=== PATIENT | female | born 1965 | race Caucasian/White ===

== ENCOUNTER 2016-11-01 05:38 | Inpatient (IN) | payer BC ==
--- NOTE | 2016-10-28 22:54 | PREOPHP ---
DATE OF ADMISSION: 11/01/2016 HISTORY: This is a 50-year-old female, 5, para 1. This patient was referred to me by Dr. Chela centeno for a large fibroid uterus with a history of severe pelvic pain and IUD in situ. The patient h as been bleeding off and on with heavy periods with clots. She has been anemic, and she has also a history of diabetes and hypertension that have been controlled and followed by Dr. Woods. She has b een having brownish vaginal discharges, and the uterus has come so high that it was very near her um bilicus. The pelvic pain and back pain have been progressively getting worse, and she is not going to have any more children. She would like the uterus to be removed. PAST HISTORY: , diabetes, hypertension and right arm cyst excision. ALLERGIES: SHE IS ALLERGIC TO PENICILLIN. MEDICATIONS: She is on: 1. Benazepril. 2. Claritin. 3. Glimepiride 4 mg. 4. Insulin. 5. Januvia. 6. Lantus insulin. 7. Lipitor. 8. Metformin. 9. Omeprazole. The patient had been complaining also of urinary incontinence due to the size of the uterus and her pelvic pressure. The ultrasound was over 19 cm uterus with multiple fibroids, the largest 3 of them are 8 cm. The patient is also lately on aspirin and atorvastatin, and she was advised to take off the aspirin before 1 week from the surgery. FAMILY HISTORY: Diabetes. REVIEW OF SYSTEMS: Contributory only on her pain and bladder pressure. PHYSICAL EXAMINATION: GENERAL APPEARANCE: Good. VITAL SIGNS: Stable. Blood pressure 150/90, pulse is 80. She is afebrile. She weighs 191. She i s 5 feet 4 inches. HEAD AND NECK: Normal. BREASTS: With severe fibrocystic breast disease. No masses. HEART: Normal sinus rhythm. BACK: Normal. ABDOMEN: Soft. Uterus 4 fingerbreadths from the umbilicus. GENITALIA: Normal. Cervix healthy. Uterus large. The adnexa I am not able to evaluate. RECTAL: Normal. EXTREMITIES: Normal. DIAGNOSES: 1. Controlled diabetes type 2. 2. Hypertension. 3. Giant fibroids. 4. Intrauterine device in situ. PLAN: She is undergoing a ANKUR ____ where will try to keep her ovaries due to her age. She has been advised of the possible risks and possible complications of the procedure with her alternatives and options. Written information was provided. She had no more questions and agreed to go ahead with the procedure with full understanding and no more questions. Dictated By: YELENA DAVIES/WILLOW Conf#: [id number] DID#: [id number]
--- NOTE | 2016-10-30 15:45 | PREOPHP ---
DATE OF ADMISSION: 11/01/2016 SCHEDULED DATE OF ADMISSION: 11/01/[address] Yelena Clemente. DATE OF VISIT: 10/29/[address] Clemente: Thank you very much for allowing me to participate in the care of Ms. Chacon. She is a 50-year-old r ight-handed young lady who is being brought in electively by yourself for a ANKUR with BSO for dysfunctional uterine bleeding. She has failed all conservative attempts at treatment. PAST MEDICAL HISTORY: 1. Insulin resistance syndrome. 2. Obesity. 3. Diabetes mellitus type 2. 4. Nonalcoholic fatty liver disease. 5. Hypertension. 6. Hyperlipidemia. 7. Uterine fibroids. 8. Gastroesophageal reflux disease. 9. Allergic rhinitis. 10. Status post x1. 11. Status post benign right breast biopsy. 12. Status post T and A. 13. Status post tubal ligation. ALLERGIES: SHE IS ALLERGIC TO PENICILLIN. MEDICATIONS: 1. Atorvastatin 5 mg once a day. 2. Metformin 1 gram b.i.d. 3. Glimepiride 4 mg b.i.d. 4. Januvia 100 mg once a day. 5. Lantus insulin 60 units at bedtime. 6. Loratadine 10 mg a day. 7. Omeprazole 40 mg q.a.m. 8. An IUD named Mirena, which is in place for the moment. 9. Benazepril 20 mg once a day. HABITS: She is a nonsmoker, no alcohol, rare caffeine, no usage of recreational drugs. SOCIAL HISTORY: She was born in [place] and raised there to the age 5, then [facility]. Mackenzie dye has a high school education without experience. She is for 20 years, lives with her spouse, and she is a homemaker. FAMILY HISTORY: Negative for coronary artery disease. Positive for diabetes. Negative for hyperte nsion, negative for stroke. Negative for asthma, negative for glaucoma, negative for migraine, nega tive for colon cancer, negative for breast cancer, negative for osteoporosis. REVIEW OF SYSTEMS: HEAD AND EYES: Fully negative. ENT: Negative. CARDIAC: Negative. RESPIRATORY: Negative. GASTROINTESTINAL: Negative. HEMATOLOGIC: Negative. UROLOGIC: Negative. GYNECOLOGIC: G6, P1, AB 5 with active spotting. PSYCHIATRIC: Negative. MUSCULOSKELETAL: Negative. ENDOCRINE: Negative. She is not having hypoglycemic reactions. NEUROLOGIC: Negative. GENERAL: No weight change, no fever, chills, or sweats. No changing skin lesions. PHYSICAL EXAMINATION: VITAL SIGNS: At the time of physical exam, she has a height of 5 feet 3 inches, weight 193.7, pulse 76, temperature is 98.6, blood pressure is 130/70. GENERAL: She is a pleasant woman in no jennie distress. HEENT: NC/AT; PERRL, EOMI, anicteric. Fundi were without note; tympanic membranes were without not e; oropharynx demonstrates no lesions. NECK: Supple. There is a midline trachea. There is no thyromegaly; pulses are 2+ without bruits. RESPIRATORY: Clear to auscultation and percussion. CARDIAC: Demonstrates no JVD, a regular rate and rhythm without rubs, murmurs, or gallops. ABDOMEN: Soft, nontender, active bowel sounds, no hepatosplenomegaly, no CVA tenderness, no hernias and no bruits. EXTREMITIES: Demonstrate no clubbing, cyanosis, or edema. Please note that the top of the fundus i s at the umbilicus NEUROLOGIC: Nonfocal. LABS: Chest x-ray demonstrates normal bones and soft tissue, with abundant soft tissues, normal car diac size and silhouette, normal lungs with no evidence of TB. EKG is sinus rhythm at 82 with intervals of 0.14, 0.08, 08, 3 and axis of 0 degrees, normal morpholo gy. Sodium 138, potassium 4.6, chloride 102, bicarbonate 25, BUN 11, creatinine 0.59, random blood sugar 89. Liver chemistries are without note. White count 10.9, hematocrit 42.1, hemoglobin 14.2, plate let count 297. Pro time 11.3 with an INR of 0.95, PTT is 26 seconds. ASSESSMENT AND PLAN: Preoperative medical consultation prior to elective ANKUR with BSO. At this denisse e, I find Ms. Chacon to be an acceptable surgical candidate and concur with your plans to proceed wi surgery. She is at average surgical risk as compared to her age-matched peers. She should do we ll using standard and routine anesthesia precautions. Even though she is diabetic, using the modifi ed Reyez risk criteria, she is at average cardiac risk. Dictated By: MADISYN BECK MD, JR/WILLOW Conf#: [id number] [facility]#: [id number] CC: YELENA CLEMENTE MD;*EndCC*
[2016-10-31 09:50] VITALS: BMI 32.9
[~2016-11-01] VITALS: Ht 160 cm; Wt 86.0 kg
[2016-11-01] VITALS (20 sets, daily range): BP systolic 98–139; BP diastolic 52–81; PULSE 76–100; RESP 18–20; Ht 160 cm; Wt 86.0 kg
[~2016-11-01 05:38] MED LIST: NPH,100V10 SQ; QUIN10TA PO
[2016-11-01] MEDS ORDERED: DEXTROSE 5%-LR 1,000 ML IV SCH (06:45)
[2016-11-01] MEDS ORDERED: CLINDAMYCIN 900 MG/D5W (PMX) 50 ML IVPB ONE (06:47)
[2016-11-01] MEDS ORDERED: LIDOCAINE 2% (SDV) 5 ML INJ ONE (07:00)
[2016-11-01] MEDS ORDERED: BENA20TA48 PO (07:05)
[2016-11-01] MEDS ORDERED: LORA10TA3 PO (07:05)
[2016-11-01] MEDS ORDERED: ATOR10TA65 PO (07:05)
[2016-11-01] MEDS ORDERED: ASPI81TA3 PO (07:05)
[2016-11-01] MEDS ORDERED: GLIM4TAB PO (07:05)
[2016-11-01] MEDS ORDERED: OMEP20CA16 PO (07:05)
[2016-11-01] MEDS ORDERED: SITA100T8 PO (07:05)
[2016-11-01] MEDS ORDERED: LANT3I SC (07:05)
[2016-11-01] MEDS ORDERED: METF1000 PO (07:05)
[2016-11-01] MEDS ORDERED: FENTAnyl 50 MCG/ML VIAL ONE (07:08)
[2016-11-01] MEDS ORDERED: morphine SULFATE/PF (10 MG/10 ML) INJ ONE (07:08)
[2016-11-01] MEDS ORDERED: PROPOFOL 100 ML ONE (07:17)
[2016-11-01] MEDS ORDERED: MIDAZOLAM 1 MG/ML 2 ML INJ ONE (07:18)
--- NOTE | 2016-11-01 07:56 | HPN ---
Date/Time of Note Date/Time of Note DATE: 11/01/16 TIME: 07:56 Interval H&P Admission Note Pt. seen H&P reviewed: No system changes YELENA CLEMENTE MD Nov 01, 2016 07:56
[2016-11-01] MEDS ORDERED: LACTATED RINGER'S 1,000 ML IV SCH (07:59)
[2016-11-01] MEDS ORDERED: ONDANSETRON 4 MG INJ IV PRN ×2 (08:00→09:00)
[2016-11-01] MEDS ORDERED: KETOROLAC 30 MG INJ IV PRN ×3 (08:00→09:00)
[2016-11-01] MEDS ORDERED: hydrALAzine 20 MG INJ IV PRN (08:00)
[2016-11-01] MEDS ORDERED: LABETALOL HCL 20MG INJ IV PRN (08:00)
[2016-11-01] MEDS ORDERED: EPHEDrine SULFATE 50 MG/5 ML SYG IV PRN (08:00)
[2016-11-01] MEDS ORDERED: GLIMEPIRIDE 4 MG TAB PO SCH (08:00)
[2016-11-01] MEDS ORDERED: BISACODYL (EC) 5 MG TAB PO PRN ×2 (08:00)
[2016-11-01] MEDS ORDERED: HYDROmorphONE (0.2 MG/ML) 10ML SYG IV PRN ×3 (08:00)
[2016-11-01] MEDS ORDERED: DIPHENHYDRAMINE 50 MG INJ IV PRN ×2 (08:00→09:00)
[2016-11-01] MEDS ORDERED: ZOLPIDEM 5 MG TAB PO PRN ×3 (08:00→09:00)
[2016-11-01] MEDS ORDERED: INSULIN ASPART [NOVOLOG] 3 ML PEN SC ONE (08:00)
[2016-11-01] MEDS ORDERED: HYDROCODONE/APAP (5/325) TAB PO PRN ×3 (08:00→09:00)
[2016-11-01] MEDS ORDERED: MEPERIDINE 25 MG INJ IV PRN (08:00)
[2016-11-01] MEDS ORDERED: HYDROmorphONE 1 MG/ML SYG IV PRN ×4 (08:00→09:00)
[2016-11-01] MEDS ORDERED: DIPHENHYDRAMINE 50 MG CAP PO PRN ×2 (08:00)
[2016-11-01] MEDS ORDERED: PHENYLephrine (100 MCG/ML) 5ML SYG ONE (08:12)
[2016-11-01] MEDS ORDERED: ROCURONIUM 50 MG INJ ONE (08:17)
[2016-11-01] MEDS ORDERED: EPHEDrine SULFATE 50 MG/5 ML SYG ONE (08:18)
[2016-11-01] MEDS ORDERED: DEXAMETHASONE 4 MG/ML 1 ML INJ ONE (08:18)
[2016-11-01] MEDS ORDERED: VASOPRESSIN 20 UNITS INJ ONE ×2 (08:40→08:42)
[2016-11-01] MEDS ORDERED: SODIUM CL BACTERIOSTATIC 30 ML INJ ONE (08:41)
[2016-11-01] MEDS ORDERED: NALOXONE (0.4 MG/ML) INJ IV PRN (09:00)
[2016-11-01] MEDS ORDERED: KETOROLAC 15 MG INJ IV PRN (09:00)
[2016-11-01] MEDS ORDERED: NALBUPHINE HCL (10 MG/1 ML) INJ IV PRN (09:00)
[2016-11-01] MEDS: LORATADINE 10 MG TAB PO SCH (09:00)
[2016-11-01] MEDS: BENAZEPRIL 20 MG TAB PO SCH (09:00)
[2016-11-01] MEDS ORDERED: ONDANSETRON 4 MG INJ ONE (10:21)
--- NOTE | 2016-11-01 10:39 | OPPN ---
Date/Time of Note Date/Time of Note DATE: 11/01/16 TIME: 10:31 Operative/Procedure Note GIANT MULTIPLE FIBROID UTERUS INTRACTABLE MENOMETRORRHAGIA AND PAIN Post-Operative Diagnosis SAME PLUS LARGE LEFT MULTIPLE OVARIAN CYSTS RIGHT OVARIAN CYST PELVIC ADHESIONS Procedure TOTAL ABDOMINAL HYSTERECTOMY LSO RIGHT SALPINGECTOMY Surgeon: YELENA CLEMENTE MD [employer] Estate Legal Secretary: MARGI LEE MD Anesthesiologist: JURGEN BUSTAMANTE MD Findings GIANT FIBROID UTERUS 22 WEEKS SIZE MULTIPLE ADHESIONS BILATERAL LARGE OVARIAN CYSTS Estimated blood loss: 150 - 200 ml's Specimens UTERUS TUBES AND LEFT OVARY AND OVARIAN CYSTS Complications: None Anesthesia type: general YELENA CLEMENTE MD Nov 01, 2016 10:39
[2016-11-01] MEDS ORDERED: METOCLOPRAMIDE 10 MG TAB PO SCH (12:00)
[2016-11-01] MEDS: LACTATED RINGER'S 1,000 ML IV SCH ×3 (12:20→23:59)
--- NOTE | 2016-11-01 12:24 | CONS ---
Date/Time of Note Date/Time of Note DATE: 11/01/16 TIME: 12:20 Assessment/Plan Assessment/Plan Problems: (1) Diabetes mellitus type 2 in obese Status: Chronic Comment: At this time since she is nauseated and not taking p.o. I am going to put a hold on the glimepiride. Should continue her other medications and be on sliding scale insulin for the moment. (2) Essential hypertension Status: Chronic Comment: She will remain on her routine medications (3) Hyperlipidemia associated with type 2 diabetes mellitus Status: Chronic Comment: Remain on her routine medication (4) Obesity (BMI 30.0-34.9) Status: Chronic Comment: Once taking p.o. she will be on a calorie restricted diet (5) Iron deficiency anemia due to chronic blood loss Status: Chronic Comment: We will take the opportunity to replace her IV (6) Status post total abdominal hysterectomy Status: Acute Comment: Postop and stable (7) Status post unilateral salpingo-oophorectomy Status: Acute Comment: Left-sided postop and stable Consultation Date/Type/Reason Admit Date/Time Nov 01, 2016 at 05:38 Initial Consult Date 11/01/2016 Type of Consultation: Internal medicine Reason for Consultation Postoperative management of medical problems including diabetes mellitus type 2 hypertension hyperlipidemia Referring Provider: YELENA CLEMENTE MD 24 HR Interval Summary Constitutional: no complaints (No fever chills or sweats) Detailed Summary ENT: no complaints Respiratory: no complaints (No dyspnea short of breath) Cardiovascular: no complaints (No chest pain no palpitation) Gastrointestinal: nausea (Positive nausea immediately postop) Genitourinary: no complaints Exam/Review of Systems Vital Signs Vitals Vital Signs Date Time Temp Pulse Resp B/P Pulse Ox O2 Delivery O2 Flow Rate FiO2 11/01/16 11:29 78 18 118/62 99 Nasal Cannula 2.0 11/01/16 10:46 98.5 Exam Constitutional: alert, oriented Neck: non-tender, supple Respiratory: clear to auscultation, normal air movement Cardiovascular: nl pulses, regular rate and rhythm Gastrointestinal: bowel sounds (Bowel sounds are quiet at this moment immediately postop from abdominal surgery), soft Results Results 24 hrs Laboratory Tests Test 11/01/16 06:33 11/01/16 12:09 Bedside Glucose 103 159 Medications Medications Current Medications Lactated Ringer's (Lr) 1,000 ml @ 125 mls/hr Q8H IV ; Start 11/01/16 at 07:59 Zolpidem Tartrate (Ambien) 10 mg HS PRN PO INSOMNIA; Start 11/01/16 at 08:00 Metoclopramide HCl (Reglan) 10 mg Q6 PO ; Start 11/01/16 at 12:00 Simethicone (Mylicon) 160 mg Q6 PO ; Start 11/01/16 at 12:00 Bisacodyl (Dulcolax) 10 mg DAILY PRN PO CONSTIPATION; Start 11/01/16 at 08:00 Hydromorphone HCl (Dilaudid) 1 mg Q4H PRN IV PAIN; Start 11/01/16 at 08:00 Acetaminophen/ Hydrocodone Bitart ([place] (5/325)) 1 tab Q6H PRN PO PAIN LEVEL 4 -6; Start 11/01/16 at 08:00 Acetaminophen/ Hydrocodone Bitart ([place] (5/325)) 2 tab Q6H PRN PO PAIN LEVEL 7 -10; Start 11/01/16 at 08:00 Ketorolac Tromethamine (Toradol) 30 mg Q6H PRN IV PAIN; Start 11/01/16 at 08:00 ; Stop 11/04/16 at 07:59 Diphenhydramine HCl 50 mg 50 mg Q6H PRN PO ITCHING; Start 11/01/16 at 08:00 Clindamycin HCl/ Dextrose (Cleocin 600 Mg/ D5W (Pmx)) 50 ml @ 50 mls/hr Q6 IVPB ; Start 11/01/16 at 12:00; Stop 11/02/16 at 06:00 Enoxaparin Sodium (Lovenox) 30 mg BID SC ; Start 11/01/16 at 21:00 Benazepril HCl (Lotensin) 20 mg DAILY PO ; Start 11/01/16 at 09:00 Loratadine (Claritin) 10 mg DAILY PO ; Start 11/01/16 at 09:00 Pantoprazole (Protonix Tab) 40 mg DAILY@06 PO ; Start 11/02/16 at 06:00 Linagliptin (Tradjenta) 5 mg DAILY PO ; Start 11/02/16 at 09:00 Hydromorphone HCl (Dilaudid) 0.2 mg Q2H PRN IV PAIN LEVEL 1-5; Start 11/01/16 at 09:00 Hydromorphone HCl (Dilaudid) 0.4 mg Q2H PRN IV PAIN LEVEL 6-10; Start 11/01/16 at 09:00 Ketorolac Tromethamine (Toradol) 30 mg Q6H PRN IV PAIN LEVEL 6-10; Start at 09:00; Stop 11/04/16 at 08:59 Ketorolac Tromethamine (Toradol) 15 mg Q6H PRN IV PAIN LEVEL 6-10; Start at 09:00; Stop 11/04/16 at 08:59 Acetaminophen/ Hydrocodone Bitart ([place] (5/325)) 1 tab Q4H PRN PO PAIN LEVEL 4 -6; Start 11/01/16 at 09:00 Diphenhydramine HCl (Benadryl) 25 mg Q4H PRN IV PRURITUS; Start 11/01/16 at 09: 00 Nalbuphine HCl (Nubain) 10 mg Q4H PRN IV PRURITUS; Start 11/01/16 at 09:00 Ondansetron HCl (Zofran Inj) 4 mg Q6H PRN IV NAUSEA AND/OR VOMITING; Start at 09:00 Naloxone HCl 0.2 mg 0.2 mg Q2M PRN IV FOR RESP RATE 8 OR LESS; Start 11/01/16 at 09:00 Ferric Sodium Gluconate Complex/ Sodium Chloride (Ferrlecit/NS) 110 ml @ 100 mls/hr Q24H IVPB ; Start 11/01/16 at 12:30; Stop 11/03/16 at 13:35; Status MADISYN CRUZ MD Nov 01, 2016 12:24
--- NOTE | 2016-11-01 13:56 | OPR ---
DATE OF OPERATION: PREOPERATIVE DIAGNOSES 1. Giant multiple fibroid uterus. 2. Intractable menometrorrhagia and pain. 3. Diabetes. 4. Hypertension. POSTOPERATIVE DIAGNOSES: 1. Giant multiple fibroid uterus. 2. Intractable menometrorrhagia and pain. 3. Diabetes. 4. Hypertension. 5. Large left multiple ovarian cysts. 6. Right ovarian cyst. OPERATION PERFORMED: Total abdominal hysterectomy, left salpingo-oophorectomy, right salpingectomy. Lysis of adhesions. SURGEON: Dr. Guerrero. DIRECTOR CLINICAL OPERATIONS: ANESTHESIOLOGIST: Dr. Mclean. FINDINGS: Giant fibroid uterus 22 weeks size, multiple adhesions, bilateral large ovarian cyst. ESTIMATED BLOOD LOSS: COMPLICATIONS: None. PROCEDURE: The patient was given general anesthesia, placed in the supine position. A Peralta cathet er was placed in the bladder. A transverse incision was made suprapubically about 2 cm at the pubic bone for about 15 to 20 cm in length due to the size of the fibroid that is passing above and navel . The abdomen was opened in layers. Examination of the pelvic area revealed that the fibroid was a single fibroid with a giant uterus that was reaching above the navel. The decision was to detach t he rectus muscle from the tendon right underneath the pubic area. We did this with cautery for bett er exposure, and with 2 Kristen and with the help of a Melissa, the uterus bulged out of the incision a nd the size of the uterus was enormous, possibly about 7 pounds in size. The round ligaments and th e ovarian ligament and tube were burned with a LigaSure instrument and incised. The anterior broad ligament was incised and the bladder flap was made. There were adhesions from the bowel to the uterus and to the and ovaries, and ovaries to the bowel, all through both sides. Both ovaries were large. The right ovary had 1 large right ovarian cyst th at was apparently a follicular cyst. The left ovary was converted in 2 large cysts with no viable t issue. The lysis of adhesion was done and the uterine vessels were skeletonized and the uterine ves sels were clamped with Phani clamps, cut and tied with [id number] sutures with #1 Vicryl. The cardinal ligaments and uterosacral ligaments were clamped with straight clamps and the uterus was c ut at the level of the cervix to be able to put a self-retaining retractor. The uterus was removed and the self-retraining retractor OCS was placed in and the visualization was better. The cervical cuff was grabbed with a Kristen clamp. The cardinal ligaments and uterosacral ligaments were clamped, cut and tied with #1 Vicryl. The posterior vaginal cuff was entered and the cervix was removed. F [id number] sutures with #1 Vicryl were placed in both corners of the vagina and interrupted sutu res in the middle, and the vagina was closed. The cavity was visualized under water with no active bleeding. The left tube was excised with a Lig aSure instrument bipolar to 3 green level and the cyst was ruptured since it appears to be a benign cystic with follicular containing fluid. This ovary was left. The left ovary had 2 very large cyst s that had no viable ovarian tissue. For this reason, we removed the ovary from the infundibulopelv ic ligament and the tube with the LigaSure instrument. The cavity was again looked at under water. There were several adhesions of the bowel, again in 2 different places like the ovary and the side of the pelvis that were lysed. The cavity was cleaned out and a piece of Surgicel was left in the v aginal cuff, and the right ovary was protected with Interceed for prevention of adhesions. The steve toneum was now closed with a 2-0 Vicryl suture. The sponge counts and instrument counts and needle counts were correct. At this time, the rectus mu scle was placed back to the tendon area with interrupted sutures with #0 chromic and the fascia was closed with 0 PDS looped suture. The subcutaneous tissue was closed with 2-0 Vicryl and the skin wa s closed with 3-0 Monocryl subcuticular stitch. Dermabond was applied and Steri-Strips and a pressu re dressing. The patient tolerated the procedure well and left the OR awake and stable. Sponge cou nts and instrument counts were correct. Intravenous antibiotics were given for prophylaxis. Blood loss was minimal and the urine was clear at the end of the procedure. Dictated By: YELENA DAVIES/WILLOW Conf#: [id number] DID#: [id number]
[2016-11-01] MEDS: SOD FERRIC GLUC COMPLX 125 MG in SOD CHLORIDE 0.9% 100 ML IVPB SCH (14:02)
[2016-11-01] MEDS: CLINDAMYCIN 600 MG/D5W (PMX) 50 ML IVPB SCH ×2 (15:04→19:42)
[2016-11-01] MEDS: metFORMIN 500 MG TAB PO SCH (17:49)
[2016-11-01] MEDS: METOCLOPRAMIDE 10 MG TAB PO SCH (17:50)
[2016-11-01] MEDS: ENOXAPARIN 30 MG/0.3 ML SYG SC SCH (21:10)
[2016-11-02] MEDS: METOCLOPRAMIDE 10 MG TAB PO SCH ×4 (00:21→17:54)
[2016-11-02] MEDS: CLINDAMYCIN 600 MG/D5W (PMX) 50 ML IVPB SCH ×2 (00:21→05:38)
[2016-11-02 00:25] VITALS: BP 99/65; PULSE 82; RESP 18
[2016-11-02] MEDS: LACTATED RINGER'S 1,000 ML IV SCH ×2 (02:25→11:15)
[2016-11-02 05:33] LABS: BASOPHILS % 0.4 % (0.0-2.0); EOSINOPHILS # 0.1 10^3/ul (0.0-0.5); EOSINOPHILS % 0.8 % (0.0-7.0); HEMOGLOBIN 10.3 g/dl (12.0-16.0); LYMPHOCYTES # 2.6 10^3/ul (0.8-2.9); MEAN CORPUSCULAR HGB CONC 33.1 g/dl (32.0-37.0); MEAN CORPUSCULAR VOLUME 90.5 fl (82.0-101.0); MEAN PLATELET VOLUME 8.5 fl (7.4-10.4); MONOCYTE # 1.3 10^3/ul (0.3-0.9); MONOCYTES % 11.4 % (0.0-11.0); NEUTROPHIL # 7.3 10^3/ul (1.6-7.5); NEUTROPHILS % 64.4 % (39.0-77.0); PLATELET COUNT 228 10^3/UL (140-440); RED BLOOD COUNT 3.42 10^6/ul (4.20-5.40); RED CELL DISTRIBUTION WIDTH 14.6 % (11.5-14.5); UNCORRECTED WBC 11.4 10^3/ul (4.8-10.8); WHITE BLOOD COUNT 11.4 10^3/ul (4.8-10.8)
[2016-11-02] MEDS: PANTOPRAZOLE (EC) 40 MG TAB PO SCH (05:38)
[2016-11-02 05:41] LABS: CONDITION 1; LH ANALYZER COMMENTS 1
[2016-11-02 06:00] VITALS: BP 98/57; PULSE 78; RESP 18
[2016-11-02 06:14] LABS: POTASSIUM 4.7 mmol/L (3.5-5.1)
[2016-11-02 06:17] LABS: CREATININE 0.65 mg/dl (0.44-1.00)
[2016-11-02 08:29] VITALS: BP 90/52; RESP 18
[2016-11-02] MEDS: LORATADINE 10 MG TAB PO SCH (08:41)
[2016-11-02] MEDS: LINAGLIPTIN 5 MG TABLET PO SCH (08:42)
[2016-11-02] MEDS: metFORMIN 500 MG TAB PO SCH ×2 (08:43→17:54)
[2016-11-02] MEDS: ENOXAPARIN 30 MG/0.3 ML SYG SC SCH ×2 (08:45→20:46)
[2016-11-02] MEDS: BENAZEPRIL 20 MG TAB PO SCH (09:00)
[2016-11-02] MEDS: HYDROCODONE/APAP (5/325) TAB PO PRN ×2 (11:21→17:54)
--- NOTE | 2016-11-02 12:05 | PN ---
Date/Time of Note Date/Time of Note DATE: 11/02/16 TIME: 12:04 Assessment/Plan Lines/Catheters IV Catheter Type (from Nrsg): Peripheral IV Peralta in Place (from Nrsg): Yes Subjective 24 Hr Interval Summary afebrile., feels good . ambulating and voiding well abdomen soft, incision dry. not passing gases yet. encouraged ambulation Constitutional: BM, ambulates, flatus, improved, no complaints, urine output Feeding: advancing diet Pain Control: well controlled Detailed Summary Eyes: no complaints ENT: no complaints Respiratory: no complaints Cardiovascular: no complaints Gastrointestinal: no complaints Genitourinary: no complaints Musculoskeletal: no complaints Skin: no complaints Neurologic: no complaints Endocrine: no complaints Lymphatic: no complaints Psychological: nl mood/affect, no complaints Immunologic: no complaints Exam/Review of Systems Vital Signs Vitals Vital Signs Date Time Temp Pulse Resp B/P Pulse Ox O2 Delivery O2 Flow Rate FiO2 11/02/16 08:29 98.3 77 18 90/52 94 11/02/16 06:00 Room Air 2.0 Intake and Output 11/01/16 11/01/16 11/02/16 15:00 23:00 07:00 Intake Total 2700 ml 1010 ml 1700 ml Output Total 380 ml 800 ml 950 ml Balance 2320 ml 210 ml 750 ml Exam Constitutional: alert, oriented, well developed Psych: nl mood/affect, no complaints Head: atraumatic, normocephalic Eyes: EOMI, nl conjunctiva, nl lids, nl sclera ENMT: mucosa pink and moist, nl external ears & nose, nl lips & teeth, nl nasal mucosa & septum Neck: non-tender, supple Respiratory: clear to auscultation, normal air movement Cardiovascular: nl pulses, regular rate and rhythm Gastrointestinal: nl liver, spleen, non-tender, soft Musculoskeletal: nl extremities to inspection, nl gait and stance Extremities: normal pulses Neurological: CAM SPECIALIST II-XII intact, nl mental status, nl speech, nl strength Skin: nl turgor, rash or lesions Lymph: nl lymph nodes Results Result Diagram: 11/02/16 0435 11/02/16 0435 YELENA CLEMENTE MD Nov 02, 2016 12:05
[2016-11-02] MEDS ORDERED: BISACODYL (EC) 5 MG TAB PO ONE (12:30)
[2016-11-02] MEDS: SOD FERRIC GLUC COMPLX 125 MG in SOD CHLORIDE 0.9% 100 ML IVPB SCH (13:06)
--- NOTE | 2016-11-02 14:42 | PN ---
Date/Time of Note Date/Time of Note DATE: 11/02/16 TIME: 14:40 Assessment/Plan VTE Prophylaxis VTE Prophylaxis Intervention: LMWH Lines/Catheters IV Catheter Type (from Nrsg): Saline Lock Urinary Cath still in place: Yes Subjective 24 Hr Interval Summary Free Text/Dictation post hys, doing well, can walk to br, ok without catheter, pain control is ok not sob, no cp, no bleeding alert, lungs clear, heart rate is ok vs good fs blood sugar ok today Exam/Review of Systems Vital Signs Vitals Vital Signs Date Time Temp Pulse Resp B/P Pulse Ox O2 Delivery O2 Flow Rate FiO2 11/02/16 08:29 98.3 77 18 90/52 94 11/02/16 06:00 Room Air 2.0 Intake and Output 11/01/16 11/01/16 11/02/16 15:00 23:00 07:00 Intake Total 2700 ml 1010 ml 1700 ml Output Total 380 ml 800 ml 950 ml Balance 2320 ml 210 ml 750 ml Results Result Diagram: 11/02/16 0435 11/02/16 0435 Results 24 hrs Laboratory Tests Test 11/01/16 16:50 11/02/16 04:35 11/02/16 07:59 Bedside Glucose 186 132 Anion Gap 13 Basophils # 0.0 Basophils % 0.4 Blood Morphology Comment Blood Urea Nitrogen 11 Carbon Dioxide Level 28 Chloride Level 99 Creatinine 0.65 Eosinophils # 0.1 Eosinophils % 0.8 Hematocrit 31.0 L Hemoglobin 10.3 L Lymphocytes # 2.6 Lymphocytes % 23.0 Mean Corpuscular Hemoglobin 30.0 Mean Corpuscular Hemoglobin Concent 33.1 Mean Corpuscular Volume 90.5 Mean Platelet Volume 8.5 Monocytes # 1.3 H Monocytes % 11.4 H Neutrophils # 7.3 Neutrophils % 64.4 Nucleated Red Blood Cells # 0.0 Nucleated Red Blood Cells % 0.0 Platelet Count 228 Potassium Level 4.7 Red Blood Count 3.42 L Red Cell Distribution Width 14.6 H Sodium Level 135 White Blood Count 11.4 H Medications Medications Current Medications Zolpidem Tartrate (Ambien) 10 mg HS PRN PO INSOMNIA; Start 11/01/16 at 08:00 Metoclopramide HCl (Reglan) 10 mg Q6 PO Last administered on 11/02/16t 11:21; Admin Dose 10 MG; Start 11/01/16 at 12:00 Simethicone (Mylicon) 160 mg Q6 PO Last administered on 11/02/16 11:21; Admin Dose 160 MG; Start 11/01/16 at 12:00 Bisacodyl (Dulcolax) 10 mg DAILY PRN PO CONSTIPATION; Start 11/01/16 at 08:00 Hydromorphone HCl (Dilaudid) 1 mg Q4H PRN IV PAIN; Start 11/01/16 at 08:00 Acetaminophen/ Hydrocodone Bitart ([place] (5/325)) 1 tab Q6H PRN PO PAIN LEVEL 4 -6 Last administered on 11/02/16 11:21; Admin Dose 1 TAB; Start 11/01/16 at 08: 00 Acetaminophen/ Hydrocodone Bitart ([place] (5/325)) 2 tab Q6H PRN PO PAIN LEVEL 7 -10; Start 11/01/16 at 08:00 Ketorolac Tromethamine (Toradol) 30 mg Q6H PRN IV PAIN; Start 11/01/16 at 08:00 ; Stop 11/04/16 at 07:59 Diphenhydramine HCl (Benadryl) 50 mg Q6H PRN PO ITCHING; Start 11/01/16 at 08: 00 Enoxaparin Sodium (Lovenox) 30 mg BID SC Last administered on 11/02/16 08:45; Admin Dose 30 MG; Start 11/01/16 at 21:00 Benazepril HCl (Lotensin) 20 mg DAILY PO ; Start 11/01/16 at 09:00 Loratadine (Claritin) 10 mg DAILY PO Last administered on 11/02/16 08:41; Admin Dose 10 MG; Start 11/01/16 at 09:00 Pantoprazole (Protonix Tab) 40 mg DAILY@06 PO Last administered on 11/02/16 05 :38; Admin Dose 40 MG; Start 11/02/16 at 06:00 Linagliptin (Tradjenta) 5 mg DAILY PO Last administered on 11/02/16 08:42; Admin Dose 5 MG; Start 11/02/16 at 09:00 Hydromorphone HCl (Dilaudid) 0.2 mg Q2H PRN IV PAIN LEVEL 1-5; Start 11/01/16 at 09:00 Hydromorphone HCl (Dilaudid) 0.4 mg Q2H PRN IV PAIN LEVEL 6-10; Start 11/01/16 at 09:00 Ketorolac Tromethamine (Toradol) 30 mg Q6H PRN IV PAIN LEVEL 6-10; Start at 09:00; Stop 11/04/16 at 08:59 Ketorolac Tromethamine (Toradol) 15 mg Q6H PRN IV PAIN LEVEL 6-10; Start at 09:00; Stop 11/04/16 at 08:59 Acetaminophen/ Hydrocodone Bitart ([place] (5/325)) 1 tab Q4H PRN PO PAIN LEVEL 4 -6; Start 11/01/16 at 09:00 Diphenhydramine HCl (Benadryl) 25 mg Q4H PRN IV PRURITUS Last administered on 12:48; Admin Dose 25 MG; Start 11/01/16 at 09:00 Nalbuphine HCl (Nubain) 10 mg Q4H PRN IV PRURITUS; Start 11/01/16 at 09:00 Ondansetron HCl (Zofran Inj) 4 mg Q6H PRN IV NAUSEA AND/OR VOMITING Last administered on 11/01/16 12:20; Admin Dose 4 MG; Start 11/01/16 at 09:00 Naloxone HCl 0.2 mg 0.2 mg Q2M PRN IV FOR RESP RATE 8 OR LESS; Start 11/01/16 at 09:00 Ferric Sodium Gluconate Complex/ Sodium Chloride (Ferrlecit/NS) 110 ml @ 100 mls/hr Q24H IVPB Last administered on 11/02/16 13:06; Admin Dose 100 MLS/HR; Start 11/01/16 at 14:00; Stop 11/03/16 at 15:05 RITA GIBBONS MD Nov 02, 2016 14:42
[2016-11-03] MEDS: METOCLOPRAMIDE 10 MG TAB PO SCH ×5 (00:09→23:47)
[2016-11-03] MEDS: HYDROCODONE/APAP (5/325) TAB PO PRN ×4 (00:14→19:17)
[2016-11-03] MEDS: PANTOPRAZOLE (EC) 40 MG TAB PO SCH (05:59)
[2016-11-03 07:50] VITALS: BP 136/65; RESP 17
[2016-11-03] MEDS: metFORMIN 500 MG TAB PO SCH ×2 (07:54→17:57)
[2016-11-03] MEDS: LINAGLIPTIN 5 MG TABLET PO SCH (08:18)
[2016-11-03] MEDS: LORATADINE 10 MG TAB PO SCH (08:18)
[2016-11-03] MEDS: BENAZEPRIL 20 MG TAB PO SCH (08:18)
[2016-11-03] MEDS: ENOXAPARIN 30 MG/0.3 ML SYG SC SCH ×2 (08:21→21:08)
--- NOTE | 2016-11-03 13:15 | QN ---
Documentation Comment LABORIST following pt for Dr Guerrero today. POD #2 s/p ANKUR. Still no flatus or BM but pt is not uncomfortable. Adequate pain relief. Tolerating a regular diet. Reports a slight cough and says it is a recurrence of a URI she had prior to surgery for which she was put on antibiotics by Dr Woods. T= 98.5. MH=099/65. Incision C/D/I. No evidence of infection. Extremities no edema, NT. P: Plan d/c tomorrow. Hopefully Dr Woods or an associate will see this pt today and give meds as needed for her URI. Offered stool softeners and/or Mylicon and pt deferred for now. ABHAY WHITNEY MD Nov 03, 2016 13:15
[2016-11-03] MEDS: SOD FERRIC GLUC COMPLX 125 MG in SOD CHLORIDE 0.9% 100 ML IVPB SCH (14:04)
[2016-11-03] MEDS ORDERED: GLUCOSE GEL 15 GRAM TUBE PO PRN ×2 (18:00)
[2016-11-03] MEDS ORDERED: DEXTROSE 50% 50 ML SYRINGE IV PRN ×2 (18:00)
[2016-11-03] MEDS ORDERED: GLUCOSE GEL 15 GRAM TUBE BUCCAL PRN (18:00)
[2016-11-03] MEDS ORDERED: GLUCAGON 1 MG INJ IM PRN (18:00)
--- NOTE | 2016-11-03 18:47 | CONS ---
Date/Time of Note Date/Time of Note DATE: 11/03/16 TIME: 18:44 Assessment/Plan Assessment/Plan Problems: (1) Essential hypertension Status: Chronic Comment: Good BP control (2) Diabetes mellitus type 2 in obese Status: Chronic Comment: Suboptimal glycemic control. Will resume glargine insulin but at a lesser dose than patient was taking at home. (3) Status post total abdominal hysterectomy Status: Acute Comment: Per Sr. Absuleme (4) Cough Status: Acute Comment: cough suppressant Consultation Date/Type/Reason Admit Date/Time Nov 01, 2016 at 05:38 Initial Consult Date Type of Consultation: Internal medicine Referring Provider: YELENA CLEMENTE MD 24 HR Interval Summary Free Text/Dictation C/O cough otherwise no new issues. Exam/Review of Systems Vital Signs Vitals Vital Signs Date Time Temp Pulse Resp B/P Pulse Ox O2 Delivery O2 Flow Rate FiO2 11/03/16 07:50 98.8 98 17 136/65 98 11/02/16 06:00 Room Air 2.0 Intake and Output 11/02/16 11/02/16 11/03/16 15:00 23:00 07:00 Intake Total 1000 ml Output Total 400 ml Balance 600 ml Exam Family at bedside. Constitutional: alert, oriented, well developed Neck: supple Respiratory: clear to auscultation Cardiovascular: nl pulses, regular rate and rhythm Gastrointestinal: soft Musculoskeletal: nl extremities to inspection Results POC glucose, Lads and vitals reviewed Result Diagram: 11/02/16 0435 11/02/16 0435 Results 24 hrs Laboratory Tests Test 11/03/16 07:48 11/03/16 17:41 Bedside Glucose 222 H 203 Medications Medications Current Medications Zolpidem Tartrate (Ambien) 10 mg HS PRN PO INSOMNIA; Start 11/01/16 at 08:00 Metoclopramide HCl (Reglan) 10 mg Q6 PO Last administered on 11/03/16 17:57; Admin Dose 10 MG; Start 11/01/16 at 12:00 Simethicone (Mylicon) 160 mg Q6 PO Last administered on 11/03/16 17:58; Admin Dose 160 MG; Start 11/01/16 at 12:00 Bisacodyl (Dulcolax) 10 mg DAILY PRN PO CONSTIPATION Last administered on 14:12; Admin Dose 10 MG; Start 11/01/16 at 08:00 Hydromorphone HCl (Dilaudid) 1 mg Q4H PRN IV PAIN; Start 11/01/16 at 08:00 Acetaminophen/ Hydrocodone Bitart ([place] (5/325)) 1 tab Q6H PRN PO PAIN LEVEL 4 -6 Last administered on 11/03/16 12:29; Admin Dose 1 TAB; Start 11/01/16 at 08: 00 Acetaminophen/ Hydrocodone Bitart ([place] (5/325)) 2 tab Q6H PRN PO PAIN LEVEL 7 -10 Last administered on 11/03/16 00:14; Admin Dose 2 TAB; Start 11/01/16 at 08 :00 Ketorolac Tromethamine (Toradol) 30 mg Q6H PRN IV PAIN; Start 11/01/16 at 08:00 ; Stop 11/04/16 at 07:59 Diphenhydramine HCl (Benadryl) 50 mg Q6H PRN PO ITCHING; Start 11/01/16 at 08: 00 Enoxaparin Sodium (Lovenox) 30 mg BID SC Last administered on 11/03/16 08:21; Admin Dose 30 MG; Start 11/01/16 at 21:00 Benazepril HCl (Lotensin) 20 mg DAILY PO Last administered on 11/03/16 08:18; Admin Dose 20 MG; Start 11/01/16 at 09:00 Loratadine (Claritin) 10 mg DAILY PO Last administered on 11/03/16 08:18; Admin Dose 10 MG; Start 11/01/16 at 09:00 Pantoprazole (Protonix Tab) 40 mg DAILY@06 PO Last administered on 11/03/16 05 :59; Admin Dose 40 MG; Start 11/02/16 at 06:00 Linagliptin (Tradjenta) 5 mg DAILY PO Last administered on 11/03/16 08:18; Admin Dose 5 MG; Start 11/02/16 at 09:00 Hydromorphone HCl (Dilaudid) 0.2 mg Q2H PRN IV PAIN LEVEL 1-5; Start 11/01/16 at 09:00 Hydromorphone HCl (Dilaudid) 0.4 mg Q2H PRN IV PAIN LEVEL 6-10; Start 11/01/16 at 09:00 Ketorolac Tromethamine (Toradol) 30 mg Q6H PRN IV PAIN LEVEL 6-10; Start at 09:00; Stop 11/04/16 at 08:59 Ketorolac Tromethamine (Toradol) 15 mg Q6H PRN IV PAIN LEVEL 6-10; Start at 09:00; Stop 11/04/16 at 08:59 Acetaminophen/ Hydrocodone Bitart ([place] (5/325)) 1 tab Q4H PRN PO PAIN LEVEL 4 -6; Start 11/01/16 at 09:00 Diphenhydramine HCl (Benadryl) 25 mg Q4H PRN IV PRURITUS Last administered on 12:48; Admin Dose 25 MG; Start 11/01/16 at 09:00 Nalbuphine HCl (Nubain) 10 mg Q4H PRN IV PRURITUS; Start 11/01/16 at 09:00 Ondansetron HCl (Zofran Inj) 4 mg Q6H PRN IV NAUSEA AND/OR VOMITING Last administered on 11/01/16 12:20; Admin Dose 4 MG; Start 11/01/16 at 09:00 Naloxone HCl (Narcan) 0.2 mg Q2M PRN IV FOR RESP RATE 8 OR LESS; Start at 09:00 Insulin Glargine (Lantus) 10 unit DAILY@20 SC ; Start 11/03/16 at 20:00 Miscellaneous Information 1 ea NOTE XX ; Start 11/03/16 at 18:00 Glucose (Glutose) 15 gm Q15M PRN PO DECREASED GLUCOSE; Start 11/03/16 at 18:00 Glucose (Glutose) 22.5 gm Q15M PRN PO DECREASED GLUCOSE; Start 11/03/16 at 18: 00 Dextrose (D50w Syringe) 25 ml Q15M PRN IV DECREASED GLUCOSE; Start 11/03/16 at 18:00 Dextrose (D50w Syringe) 50 ml Q15M PRN IV DECREASED GLUCOSE; Start 11/03/16 at 18:00 Glucagon (Glucagen) 1 mg Q15M PRN IM DECREASED GLUCOSE; Start 11/03/16 at 18:00 Glucose (Glutose) 15 gm Q15M PRN BUCCAL DECREASED GLUCOSE; Start 11/03/16 at 18 :00 CARMELA VILLANUEVA MD Nov 03, 2016 18:47
[2016-11-03] MEDS ORDERED: PROMETHAZINE (1.25 MG/ML) 5 ML CUP PO PRN (19:00)
[2016-11-03] MEDS ORDERED: INSULIN GLARGINE [LANtus] 3 ML PEN SC SCH (20:00)
[2016-11-03 21:43] VITALS: BP 130/77; RESP 20
[2016-11-04] MEDS: HYDROCODONE/APAP (5/325) TAB PO PRN ×3 (02:55→16:51)
[2016-11-04] MEDS: METOCLOPRAMIDE 10 MG TAB PO SCH ×2 (05:49→11:04)
[2016-11-04] MEDS: PANTOPRAZOLE (EC) 40 MG TAB PO SCH (05:49)
[2016-11-04 07:39] VITALS: BP 114/56; RESP 16
[2016-11-04] MEDS: metFORMIN 500 MG TAB PO SCH (08:35)
[2016-11-04] MEDS: LINAGLIPTIN 5 MG TABLET PO SCH (08:35)
[2016-11-04] MEDS: LORATADINE 10 MG TAB PO SCH (08:36)
[2016-11-04] MEDS: BENAZEPRIL 20 MG TAB PO SCH (08:36)
[2016-11-04] MEDS: ENOXAPARIN 30 MG/0.3 ML SYG SC SCH (08:38)
--- NOTE | 2016-11-04 11:45 | PD.PPDC ---
CERAMICS TEST ENGINEER Discharge Instruction Condition Patient Condition: Good Diet Diet: Resume Regular Diet Activity/Restrictions Activity: Bedrest May be up to bathroom May be up for meals May Shower Restrictions: No Exercising No Lifting No Driving Minimize Walking Minimize Stair-climbing No Sexual Activity Nothing in the Vagina No [place] No Tampons, douche Wound/Drain Care Instructions Wound/Drain Care Instructions: Remove Steri Strips in 2 weeks Follow-up Follow-up with Physician: 1, Week/Weeks Return to clinic for DISTRICT MANAGER POSTAL SERVICE Instructions: Fever greater than 101 Chills Worsening abdominal pain Excessive Vaginal Bleeding Surgical Instructions: Incisional Drainage Incisional Redness ABHAY WHITNEY MD Nov 04, 2016 11:45
--- NOTE | 2016-11-04 11:56 | DS ---
Date/Time of Note Date/Time of Note DATE: 11/04/16 TIME: 11:48 Discharge Summary Admission/Discharge Info Admit Date/Time Nov 01, 2016 at 05:38 Discharge Date/Time Nov 04, 2016 Final Diagnosis S/P Total abdominal hysterectomy. Diabetes. Hypertension. Patient Condition: Good Consults Dr Woods Procedures Total abdominal hysterectomy. Hospital Course Pt's postoperative course was fairly unremarkable surgically with NPO status initially, advancing to clears and then a diabetic diet. Her pain has been managed appropriately. She is ambulating and without complaints. Her blood pressure has been in good range the whole time. Her blood sugars were a little high in the middle of the postoperative course which was managed by adjustments in her medications by Dr Woods and associated providers and her blood sugars most recently were improved to 193 before sleep and 186 this AM at 0830. Pt is ready for discharge. Home Meds Reported Medications Omeprazole* (Omeprazole*) 20 Mg Capsule.dr, 20 MG PO DAILY, #30 CAP 11/01/16 Metformin Hcl* (Metformin Hcl*) 1,000 Mg Tablet, 1000 MG PO WITH BREAKFAST DINNE , #60 TAB 11/01/16 Loratadine* (Loratadine*) 10 Mg Tablet, 10 MG PO DAILY, #30 TAB 11/01/16 Insulin Glargine* (Lantus*) 100 Unit/Ml Soln, 45 UNIT SC QHS, #1 VIAL 11/01/16 Sitagliptin* (Januvia*) 100 Mg Tablet, 100 MG PO DAILY, #30 TAB 11/01/16 Glimepiride* (Glimepiride*) 4 Mg Tablet, 4 MG PO WITH BREAKFAST DINNE, TAB 11/01/16 Benazepril Hcl* (Benazepril Hcl*) 20 Mg Tablet, 20 MG PO DAILY, #30 TAB 11/01/16 Atorvastatin Calcium (Atorvastatin Calcium) 10 Mg Tablet, 10 MG PO QHS, #30 TAB 11/01/16 Aspirin* (Aspirin* Chew) 81 Mg Tab.chew, 81 MG PO DAILY, TAB.CHEW 11/01/16 Discontinued Reported Medications Quinapril Hcl (Accupril) 10 Mg Tablet, 10 MG PO DAILY 08/03/11 Nph, Human Insulin Isophane* (Novolin N*) 100 U/Ml Vial, 14 SQ BID 08/03/11 Follow-up Plan To follow-up with Dr Guerrero in one week. Pending Labs Laboratory Tests Test 11/03/16 17:41 11/03/16 20:31 11/03/16 23:46 11/04/16 08:34 Bedside Glucose 203mg/dL (70-220) 232mg/dL (70-220) 193mg/dL (70-220) 186mg/dL (70-220) ABHAY WHITNEY MD Nov 04, 2016 11:56
--- NOTE | 2016-11-04 17:39 | CONS ---
Date/Time of Note Date/Time of Note DATE: 11/04/16 TIME: 17:33 Assessment/Plan Assessment/Plan Problems: (1) Diabetes mellitus type 2 in obese Status: Chronic Comment: Suboptimal glycemic control. Would have likely been closer to target if Glargine given last night. Instructed patient to inject 10 units daily and increase dose every 5 days by 5 units for blood glucose levels greater than 180mg/dl and to stop increasing when glucose levels are at 80mg/dl Consultation Date/Type/Reason Admit Date/Time Nov 01, 2016 at 05:38 Type of Consultation: Internal medicine Referring Provider: YELENA CLEMENTE MD 24 HR Interval Summary Free Text/Dictation Did not receive Glargine dose last night. Dose held by RN Exam/Review of Systems Vital Signs Vitals Vital Signs Date Time Temp Pulse Resp B/P Pulse Ox O2 Delivery O2 Flow Rate FiO2 11/04/16 07:39 98.8 83 16 114/56 97 11/02/16 06:00 Room Air 2.0 Intake and Output 11/03/16 11/03/16 11/04/16 15:00 23:00 07:00 Intake Total 1400 ml 110 ml Balance 1400 ml 110 ml Exam Constitutional: alert, oriented, well developed Psych: no complaints Neck: supple Respiratory: clear to auscultation Cardiovascular: regular rate and rhythm Musculoskeletal: nl extremities to inspection Results POC glucose Result Diagram: 11/02/16 0435 11/02/16 0435 Results 24 hrs Laboratory Tests Test 11/03/16 17:41 11/03/16 20:31 11/03/16 23:46 11/04/16 08:34 Bedside Glucose 203 232 H 193 186 Medications Medications Current Medications Zolpidem Tartrate (Ambien) 10 mg HS PRN PO INSOMNIA; Start 11/01/16 at 08:00 Metoclopramide HCl (Reglan) 10 mg Q6 PO Last administered on 11/04/16 11:04; Admin Dose 10 MG; Start 11/01/16 at 12:00 Simethicone (Mylicon) 160 mg Q6 PO Last administered on 11/04/16 11:04; Admin Dose 160 MG; Start 11/01/16 at 12:00 Bisacodyl (Dulcolax) 10 mg DAILY PRN PO CONSTIPATION Last administered on 14:12; Admin Dose 10 MG; Start 11/01/16 at 08:00 Hydromorphone HCl (Dilaudid) 1 mg Q4H PRN IV PAIN; Start 11/01/16 at 08:00 Acetaminophen/ Hydrocodone Bitart ([place] (5/325)) 1 tab Q6H PRN PO PAIN LEVEL 4 -6 Last administered on 11/03/16 12:29; Admin Dose 1 TAB; Start 11/01/16 at 08: 00 Acetaminophen/ Hydrocodone Bitart ([place] (5/325)) 2 tab Q6H PRN PO PAIN LEVEL 7 -10 Last administered on 11/04/16 16:51; Admin Dose 2 TAB; Start 11/01/16 at 08 :00 Diphenhydramine HCl (Benadryl) 50 mg Q6H PRN PO ITCHING; Start 11/01/16 at 08: 00 Enoxaparin Sodium (Lovenox) 30 mg BID SC Last administered on 11/04/16 08:38; Admin Dose 30 MG; Start 11/01/16 at 21:00 Benazepril HCl (Lotensin) 20 mg DAILY PO Last administered on 11/04/16 08:36; Admin Dose 20 MG; Start 11/01/16 at 09:00 Loratadine (Claritin) 10 mg DAILY PO Last administered on 11/04/16 08:36; Admin Dose 10 MG; Start 11/01/16 at 09:00 Pantoprazole (Protonix Tab) 40 mg DAILY@06 PO Last administered on 11/04/16 05 :49; Admin Dose 40 MG; Start 11/02/16 at 06:00 Linagliptin (Tradjenta) 5 mg DAILY PO Last administered on 11/04/16 08:35; Admin Dose 5 MG; Start 11/02/16 at 09:00 Hydromorphone HCl (Dilaudid) 0.2 mg Q2H PRN IV PAIN LEVEL 1-5; Start 11/01/16 at 09:00 Hydromorphone HCl (Dilaudid) 0.4 mg Q2H PRN IV PAIN LEVEL 6-10; Start 11/01/16 at 09:00 Acetaminophen/ Hydrocodone Bitart ([place] (5/325)) 1 tab Q4H PRN PO PAIN LEVEL 4 -6; Start 11/01/16 at 09:00 Diphenhydramine HCl (Benadryl) 25 mg Q4H PRN IV PRURITUS Last administered on 12:48; Admin Dose 25 MG; Start 11/01/16 at 09:00 Nalbuphine HCl (Nubain) 10 mg Q4H PRN IV PRURITUS; Start 11/01/16 at 09:00 Ondansetron HCl (Zofran Inj) 4 mg Q6H PRN IV NAUSEA AND/OR VOMITING Last administered on 11/01/16 12:20; Admin Dose 4 MG; Start 11/01/16 at 09:00 Naloxone HCl (Narcan) 0.2 mg Q2M PRN IV FOR RESP RATE 8 OR LESS; Start at 09:00 Insulin Glargine (Lantus) 10 unit DAILY@20 SC ; Start 11/03/16 at 20:00 Miscellaneous Information 1 ea NOTE XX ; Start 11/03/16 at 18:00 Glucose (Glutose) 15 gm Q15M PRN PO DECREASED GLUCOSE; Start 11/03/16 at 18:00 Glucose (Glutose) 22.5 gm Q15M PRN PO DECREASED GLUCOSE; Start 11/03/16 at 18: 00 Dextrose (D50w Syringe) 25 ml Q15M PRN IV DECREASED GLUCOSE; Start 11/03/16 at 18:00 Dextrose (D50w Syringe) 50 ml Q15M PRN IV DECREASED GLUCOSE; Start 11/03/16 at 18:00 Glucagon (Glucagen) 1 mg Q15M PRN IM DECREASED GLUCOSE; Start 11/03/16 at 18:00 Glucose (Glutose) 15 gm Q15M PRN BUCCAL DECREASED GLUCOSE; Start 11/03/16 at 18 :00 Promethazine HCl (Phenergan Liq) 6.25 mg Q4H PRN PO cough; Start 11/03/16 at 19 :00 CARMELA VILLANUEVA MD Nov 04, 2016 17:39
== END 2016-11-04 17:25 | disposition home or self-care (01) | DRG 743 ==
LOC: REC 05:38 → MS1 11:55
PROVIDERS: ADMIT Obstetrics & Gynecology; ATTEND Obstetrics & Gynecology
PROC: 0UTC0ZZ Resection of Cervix, Open Approach (ICD-10-PCS; 2016-11-01)
PROC: 0UT10ZZ Resection of Left Ovary, Open Approach (ICD-10-PCS; 2016-11-01)
PROC: 0UT70ZZ Resection of Bilateral Fallopian Tubes, Open Approach (ICD-10-PCS; 2016-11-01)
PROC: 0UT90ZZ Resection of Uterus, Open Approach (ICD-10-PCS; principal; 2016-11-01 07:30)
DX: D25.1 Intramural leiomyoma of uterus (principal); I10 Essential (primary) hypertension; E11.9 Type 2 diabetes mellitus without complications; E66.9 Obesity, unspecified; D50.0 Iron deficiency anemia secondary to blood loss (chronic); N92.1 Excessive and frequent menstruation with irregular cycle; R32 Unspecified urinary incontinence; R10.2 Pelvic and perineal pain; Z97.5 Presence of (intrauterine) contraceptive device; N83.202 Unspecified ovarian cyst, left side; N83.201 Unspecified ovarian cyst, right side; Z68.30 Body mass index [BMI] 30.0-30.9, adult; R05 Cough
CPT/HCPCS: 80051; 82565; 82962; 84520; 84703; 85025; 86850; 86900; 86901; 86920; J1100; J1200; J1650; J1815; J2250; J2274; J2370; J2405; J2916; J3010; J7120

== ENCOUNTER 2016-11-13 17:35 | Emergency (ER) | payer BC ==
[~2016-11-13] VITALS: Wt 85.3 kg
[~2016-11-13 17:35] MED LIST changes: +ASPI81TA3 PO; +ATOR10TA65 PO; +BENA20TA48 PO; +GLIM4TAB PO; +LANT3I SC; +LORA10TA3 PO; +METF1000 PO; -NPH,100V10 SQ; +OMEP20CA16 PO; -QUIN10TA PO; +SITA100T8 PO
[2016-11-13 20:29] VITALS: BP 113/55; PULSE 78; RESP 18; TEMP 98.2
--- NOTE | 2016-11-14 00:46 | ERD ---
ER Documentation Chief Complaint Date/Time DATE: 11/14/16 TIME: 00:40 Chief Complaint POST OP 11/01/16 REMOVAL OF FRBROIDS, BLEEDING ON SURGICAL SITE, NO FEVERS HPI 50-year-old female with a past medical history of diabetes and fibroids presents to the ED with a status post total hysterectomy and left salpingectomy presents to the ED complaining of a weeping surgical wound that started earlier this morning. States that there was bleeding that weeping through gauze and underwear. States that she saw her OB surgeon, Dr. Yelena Clemente. States that her last menses was on 10/27/16. Denies fever, abdominal pain, chest pain, SOB, chills, flank pain, dysuria, urgency, pelvic pain. ROS All systems reviewed and are negative except as per history of present illness. Medications Home Meds Reported Medications Omeprazole* (Omeprazole*) 20 Mg Capsule.dr, 20 MG PO DAILY, #30 CAP 11/01/16 Metformin Hcl* (Metformin Hcl*) 1,000 Mg Tablet, 1000 MG PO WITH BREAKFAST DINNE , #60 TAB 11/01/16 Loratadine* (Loratadine*) 10 Mg Tablet, 10 MG PO DAILY, #30 TAB 11/01/16 Insulin Glargine* (Lantus*) 100 Unit/Ml Soln, 45 UNIT SC QHS, #1 VIAL 11/01/16 Sitagliptin* (Januvia*) 100 Mg Tablet, 100 MG PO DAILY, #30 TAB 11/01/16 Glimepiride* (Glimepiride*) 4 Mg Tablet, 4 MG PO WITH BREAKFAST DINNE, TAB 11/01/16 Benazepril Hcl* (Benazepril Hcl*) 20 Mg Tablet, 20 MG PO DAILY, #30 TAB 11/01/16 Atorvastatin Calcium (Atorvastatin Calcium) 10 Mg Tablet, 10 MG PO QHS, #30 TAB 11/01/16 Aspirin* (Aspirin* Chew) 81 Mg Tab.chew, 81 MG PO DAILY, TAB.CHEW 11/01/16 Allergies Allergies: Coded Allergies: Penicillins (Verified Allergy, Unknown, ITCHING AND SWELLING, 10/30/16) PMhx/Soc History of Surgery: Yes (CSECTION) Anesthesia Reaction: No Hx Neurological Disorder: No Hx Respiratory Disorders: No Hx Cardiac Disorders: No Hx Psychiatric Problems: No Hx Miscellaneous Medical Probl: No Hx Alcohol Use: No Hx Substance Use: No Hx Tobacco Use: No Physical Exam Vitals Vital Signs Date Time Temp Pulse Resp B/P Pulse Ox O2 Delivery O2 Flow Rate FiO2 11/13/16 20:29 98.2 78 18 113/55 96 Room Air 11/13/16 18:14 98.8 83 20 142/63 98 Physical Exam Const: [id number], well-nourished. In no acute distress. Head: Atraumatic, normocephalic Eyes: Normal Conjunctiva without injection. No purulent discharge. ENT: Normal external ear, nose. Moist oropharynx without tonsillar exudates. Non -erythematous pharynx. Uvula midline. No drooling. No trismus. Neck: No cervical midline tenderness. Full range of motion. No meningismus. No cervical lymphadenopathy. No JVD. Resp: Clear to auscultation bilaterally. No wheezing, rhonchi, rales, or crackles. No accessory muscle use. No retractions. Cardio: Regular rate and rhythm. No murmurs, rubs or gallops. Abd: Soft, nontender, non distended. Normal bowel sounds. No palpable masses. No rebound tenderness. No guarding. Negative McBurney's point. Negative psoas sign. Negative obturator sign. Skin: No petechiae or rashes. No purpura. 12 cm surgical wound with no fluctuance or induration. Weeping 1 cm opening of the surgical site with dark red blood noted. No purulent discharge noted. Back: No midline tenderness. No CVA tenderness. Ext: No cyanosis, or edema. Neur: Awake and alert. Normal gait. Normal coordination. Psych: Normal Mood and Affect Procedures/MDM This is a 50-year-old female with a past medical history of diabetes presents to the ED complaining of a weeping bloody surgical wound that started earlier this morning. Patient is afebrile nontoxic appearing. Patient has normal vital signs. This case was discussed with my supervising physician, Dr. Ac chairez. He also evaluated patient at this time. He placed plain one half packing onto the surgical site where the opening was noted. This sustained the bleeding. There is low suspicion for postop complication, acute abdomen, appendicitis, sepsis, pneumonia, UTI, pyelonephritis, or other emergent conditions. Follow up with Dr. Clemente in 1-2 days. Instructed patient to return to the ED sooner for any worsening symptoms. Patient's questions were answered. Patient understood and agreed with discharge plan. Patient discharged stable. Departure Diagnosis: Primary Impression: Encounter for post surgical wound check Condition: Stable Patient Instructions: Wound Care, Post Op Wound Check, General Referrals: YELENA CLEMENTE MD [facility] YOU HAVE RECEIVED A MEDICAL SCREENING EXAM AND THE RESULTS INDICATE THAT YOU DO NOT HAVE A CONDITION THAT REQUIRES URGENT TREATMENT IN THE EMERGENCY DEPARTMENT. FURTHER EVALUATION AND TREATMENT OF YOUR CONDITION CAN WAIT UNTIL YOU ARE SEEN IN YOUR DOCTORS OFFICE WITHIN THE NEXT 1-2 DAYS. IT IS YOUR RESPONSIBILITY TO MAKE AN APPOINTMENT FOR FOLOW-UP CARE. IF YOU HAVE A PRIMARY DOCTOR --you should call your primary doctor and schedule an appointment IF YOU DO NOT HAVE A PRIMARY DOCTOR YOU CAN CALL OUR PHYSICIAN REFERRAL HOTLINE AT IF YOU CAN NOT AFFORD TO SEE A PHYSICIAN YOU CAN CHOSE FROM THE FOLLOWING [facility] [address] [facility] [address] [facility] [facility] [address] [facility] [address] [facility] [address] [facility] [facility]. [address] [facility]. [facility] YOU HAVE RECEIVED A MEDICAL SCREENING EXAM AND THE RESULTS INDICATE THAT YOU DO NOT HAVE A CONDITION THAT REQUIRES URGENT TREATMENT IN THE EMERGENCY DEPARTMENT. FURTHER EVALUATION AND TREATMENT OF YOUR CONDITION CAN WAIT UNTIL YOU ARE SEEN IN YOUR DOCTORS OFFICE WITHIN THE NEXT 1-2 DAYS. IT IS YOUR RESPONSIBILITY TO MAKE AN APPOINTMENT FOR FOLOW-UP CARE. IF YOU HAVE A PRIMARY DOCTOR --you should call your primary doctor and schedule and appointment IF YOU DO NOT HAVE A PRIMARY DOCTOR YOU CAN CALL OUR PHYSICIAN REFERRAL HOTLINE AT . IF YOU CAN NOT AFFORD TO SEE A PHYSICIAN YOU CAN CHOSE FROM THE FOLLOWING [facility]: [facility] [address] [place] [address] [facility] [address] [place] [address] [facility] [address] [place] [address] [facility] URGENT CARE/SPECIALTIES Additional Instructions: FOLLOW UP WITH Dr. Clemente, your STEAM POWERPLANT SUPERVISOR surgeon within 24 hours. Return to this facility if you are not improving as expected. AHSAN LAUREN PA-C Nov 14, 2016 00:46
== END 2016-11-13 20:29 | disposition home or self-care (01) ==
LOC: FTE 17:35
DX: Z48.01 Encounter for change or removal of surgical wound dressing (principal); E11.9 Type 2 diabetes mellitus without complications; Z79.4 Long term (current) use of insulin; Z79.84 Long term (current) use of oral hypoglycemic drugs; Z79.82 Long term (current) use of aspirin
CPT/HCPCS: 99282

== ENCOUNTER 2019-04-11 10:26 | Emergency (ER) | payer SELFPAY ==
[~2019-04-11] VITALS: Ht 162.6 cm; Wt 78.5 kg
[~2019-04-11 10:26] MED LIST changes: +ASPI-903 PO; -ASPI81TA3 PO; +BENA20TA4 PO; -BENA20TA48 PO; -METF1000 PO; +METF100010 PO; +SITA100T11 PO; -SITA100T8 PO
[2019-04-11 10:30] VITALS: BP 141/66; PULSE 78; RESP 18; Ht 162.6 cm; Wt 78.5 kg
== END 2019-04-11 12:30 | disposition left against medical advice (07) ==
LOC: E/R 10:26
DX: Z53.21 Procedure and treatment not carried out due to patient leaving prior to being seen by health care provider (principal)
CPT/HCPCS: 93005